=== PATIENT | female | born 1980 | race American Indian/Alaskan Native ===

== ENCOUNTER 2019-01-02 16:24 | Outpatient (CLI) | payer BC ==
--- NOTE | 2019-01-07 09:58 | Mammography Report ---
DIGITAL SCREENING MAMMOGRAM WITH CAD, 01/02/2019 INDICATION: Baseline screening mammography. TECHNIQUE: Digital bilateral 2D mammography was obtained in the craniocaudal and mediolateral obliq ue projections. This examination was interpreted with the benefit of Computer-Aided Detection analysi s. COMPARISON: None. FINDINGS: Breast Density: The breasts are heterogeneously dense, which may obscure small masses. Bilateral parenchymal asymmetries require additional imaging. No architectural distortion or suspici ous calcifications. A group of left benign calcifications in the inner breast. IMPRESSION: Bilateral parenchymal asymmetries requiring additional imaging. Recommend recall for bila teral spot spot magnification views and bilateral breast ultrasound if needed. Follow up recommendation: Special View: Mag Category 0: Incomplete. Needs additional imaging evaluation and/or prior mammograms for comparison. A "normal" or negative report should not discourage follow up or biopsy of a clinically significant f inding. A written summary of these findings will be mailed to the patient. The patient will be entered into a mammography reporting system which will generate a reminder letter for the patient's next appointmen t at the appropriate interval. The [employer] recommends yearly mammograms starting at age 40 and continuing as l dayana as a woman is in good health. Breast MRI is recommended for women with an approximate 20-25% or greater lifetime risk of breast cancer, including women with a strong family history of breast or ova antonio cancer or who have been treated for Hodgkin's disease. Signer Name: Suleman Aburto MD Signed: 01/07/2019 9:53 AM Workstation Name: [id number]
== END 2019-01-02 16:25 | disposition home or self-care (01) ==
LOC: SPVWC 16:24
PROVIDERS: ATTEND Family Medicine
DX: Z12.31 Encounter for screening mammogram for malignant neoplasm of breast (principal)
CPT/HCPCS: 77067